=== PATIENT | male | born 1965 | race Caucasian/White ===

== ENCOUNTER → 2018-03-14 10:55 | Outpatient (CLI) | payer MEDICARE, MEDICAID, SELFPAY ==
--- NOTE | 2018-03-14 11:12 | XR_ITS ---
XR foot RT min 3V HISTORY: Right foot pain following injury ITS.REASON: RT ANKLE PAIN ORDERING PHYSICIAN: Kevyn Gordon PATIENT AGE: 52 years COMPARISON: None FINDINGS: Comminuted mildly acute fractures are present involving the distal aspect of the second, third, and fourth metatarsals. The distal aspect of the second metatarsal slightly displaced medially x 2 mm. The fractures do not extend to the articular surface. There is mild osteopenia. There is some sclerosis of the subtalar joint anteriorly and posteriorly. There is questionable nondisplaced fracture involving the dorsal aspect of the talus distally. No other significant anomalies are evident. IMPRESSION: 1. Second, third, and fourth metatarsal fractures distally. These are comminuted and there is minimal medial displacement of the distal fracture fragment at the second metatarsal 2. Question nondisplaced fracture of the dorsal distal aspect of the talus
--- NOTE | 2018-03-14 11:12 | XR_ITS ---
XR ankle RT min 3V HISTORY: Posttraumatic pain ITS.REASON: RT ANKLE PAIN ORDERING PHYSICIAN: Kevyn Gordon PATIENT AGE: 52 years COMPARISON: None FINDINGS: No acute ankle fracture is evident. There are hypertrophic changes along the sustentaculum lianne and the anterior and posterior subtalar joint.. A small sclerotic focus involving the central aspect of the shaft of the tibia distally and may be due to a small bone infarction. IMPRESSION: No acute finding in the ankle. Hypertrophic changes of the sustentaculum lianne and subtalar joint
== END ==
PROVIDERS: PCP Family Medicine; Visit Provider Family Medicine
DX: M25.571 Pain in right ankle and joints of right foot (principal)
CPT/HCPCS: 73610; 73630